=== PATIENT | male | born 1950 | race Caucasian/White ===

== ENCOUNTER 2019-01-06 10:23 | Inpatient (IN) | payer OTHER, MEDICARE ==
[2019-01-06 11:17] LABS: ABSOLUTE BASOPHILS # (AUTO) 0.1 10^3/uL (0.0-0.2); ABSOLUTE EOSINOPHILS # (AUTO) 0.3 10^3/uL (0.0-0.6); ABSOLUTE LYMPHOCYTES (AUTO) 2.4 10^3/uL (0.5-4.7); ABSOLUTE MONOCYTES (AUTO) 0.6 10^3/uL (0.1-1.4); ABSOLUTE NEUT (AUTO) 3.2 10^3/uL (1.7-8.2); BASOPHILS % (AUTO) 1.3 % (0-2); HEMOGLOBIN 15.8 g/dL (13.5-17.0); LYMPHOCYTES % (AUTO) 36.7 % (13-45); MEAN CORPUSCULAR HEMOGLOBIN 34.7 pg (27.0-33.4); MEAN CORPUSCULAR HGB CONC 35.9 g/dL (32.0-36.0); MEAN CORPUSCULAR VOLUME 97 fl (80-97); MONOCYTES % (AUTO) 9.1 % (3-13); PLATELET COUNT 238 10^3/uL (150-450); RED BLOOD COUNT 4.56 10^6/uL (4.35-5.55); RED CELL DISTRIBUTION WIDTH 12.8 % (11.5-14.0); SEGMENTED NEUTROPHILS % (AUTO) 48.9 % (42-78); TOTAL CELLS COUNTED % (AUTO) 100 %; WHITE BLOOD COUNT 6.6 10^3/uL (4.0-10.5)
[2019-01-06 11:27] LABS: INTERNATIONAL RATION (INR) 0.95; PROTHROMBIN TIME 13.1 SEC (11.4-15.4)
[2019-01-06 11:39] LABS: ALANINE AMINOTRANSFERASE 47 U/L (21-72); ALBUMIN 4.4 g/dL (3.5-5.0); ALKALINE PHOSPHATASE 75 U/L (38-126); ANION GAP 12 (5-19); ASPARTATE AMINO TRANSFERASE 65 U/L (17-59); BILIRUBIN,DIRECT 0.3 mg/dL (0.0-0.4); BILIRUBIN,TOTAL 0.7 mg/dL (0.2-1.3); BLOOD UREA NITROGEN 16 mg/dL (7-20); CALCIUM 9.5 mg/dL (8.4-10.2); CARBON DIOXIDE 31 mmol/L (22-30); CHLORIDE 96 mmol/L (98-107); GLUCOSE 218 mg/dL (75-110); POTASSIUM 3.9 mmol/L (3.6-5.0); SODIUM 139.3 mmol/L (137-145); TOTAL PROTEIN 6.9 g/dL (6.3-8.2)
--- NOTE | 2019-01-06 12:33 | ER Document Report ---
Addendum entered and electronically signed by BUNNY STONE FNP 01/06/19 16:29: Discharge - Discharge Clinical Impression: Fall Qualifiers: Encounter type: initial encounter Qualified Code(s): W19.XXXA - Unspecified fall, initial encounter Stroke Qualifiers: CVA mechanism: occlusion Precerebral and cerebral artery: middle cerebral artery Laterality of affected vessel: right Qualified Code(s): I63.511 - Cerebral infarction due to unspecified occlusion or stenosis of right middle cerebral artery Condition: Stable Disposition: ADMITTED INPATIENT Admitting Provider: Hospitalist Unit Admitted: [facility] Original Note: ED General - General Chief Complaint: Altered Mental Status Stated Complaint: DIZZINESS Time Seen by Provider: 01/06/19 11:06 Notes: Patient is a 68-year-old male who presents to the emergency department with a chief complaint of altered mental status. 4 days ago he fell and hit his head. According to his who is at bedside, he hit his head and has been disoriented since. His is at bedside to help with history. Patient denies any weakness, numbness, or tingling. He did go to work these past few days, except for today. They deny any fever, chest pain, or shortness of breath. He does complain of right hip pain from the fall, but is able to walk. The pain in a sore pain Past medical history includes insulin-dependent diabetes, hypertension, and hyperlipidemia.. TRAVEL OUTSIDE OF THE [place] IN LAST 30 DAYS: No - Related Data Allergies/Adverse Reactions: No Known Allergies Allergy (Verified 01/06/19 10:28) Past Medical History - Social History Smoking Status: Unknown if Ever Smoked Family History: Reviewed & Not Pertinent Patient has suicidal ideation: No Patient has homicidal ideation: No Renal/ Medical History: Denies: Hx Peritoneal Dialysis Review of Systems - Review of Systems Notes: REVIEW OF SYSTEMS: CONSTITUTIONAL : Denies recent illness. Denies recent unintentional weight loss. Denies fever, chills, or sweats. EENT: Denies eye, ear, throat, or mouth pain, discharge, or symptoms. Denies nasal or sinus congestion. CARDIOVASCULAR: Denies chest pain. RESPIRATORY: Denies shortness of breath, cough, congestion, difficulty breathing, or wheezing. GASTROINTESTINAL: Denies nausea, vomiting, and diarrhea. Denies abdominal pain. Denies constipation. GENITOURINARY: Denies difficulty urinating, burning, blood in urine, urgency or frequency. MUSCULOSKELETAL: Denies neck and back pain. Denies joint pain or swelling. SKIN: Denies rash, itchiness, or lesions HEMATOLOGIC : Denies easy bruising or bleeding. LYMPHATIC: Denies swollen, painful, enlarged glands. NEUROLOGICAL: See HPI PSYCHIATRIC: Denies stress, anxiety, alteration in sleep patterns, or depression. All other systems reviewed and negative. Physical Exam - Vital signs Vitals: Temp Pulse Resp BP Pulse Ox 97.9 F 64 16 141/61 H 97 01/06/19 10:32 01/06/19 10:32 01/06/19 10:32 01/06/19 10:32 01/06/19 10:32 - Notes Notes: PHYSICAL EXAMINATION: GENERAL: Appears well, healthy, well-nourished, no acute distress. HEAD: Normocephalic, atraumatic. EYES: PERRL, conjunctiva normal, all extraocular movements intact, sclera nonicteric ENT: Moist mucous membranes. NECK: Supple, no noticeable swelling, redness, rash. Normal range of motion. LUNGS: Equal breath sounds bilaterally and clear to auscultation. No wheezes rales or rhonchi. CARDIOVASCULAR: S1-S2, regular rate, regular rhythm. Radial pulses 2+, normal. ABDOMEN: Normoactive bowel sounds. Soft, nontender, no guarding, no rebound tenderness, and no masses palpated. EXTREMITIES: Normal strength and range of motion, no pitting or edema. No cyanosis. NEUROLOGICAL: Moves all extremities upon command. Strength 5/5 in all extremities. PSYCH: Normal mood, normal affect. SKIN: Warm, dry. Abrasion noted to right forearm. Very small abrasion noted to left lateral portion of eye on skin. Abrasion noted to right eyebrow. Course - Re-evaluation Re-evalutation: 01/06/19 13:37 Based off patient's history and physical exam, it is uncertain as to what the cause of his confusion is. He will have a full workup and a CT of the head, chest x-ray, and labs will be done and sent. 01/06/19 15:16 The patient's x-ray is normal and his labs are unremarkable. The patient does have a right MCA infarct that is unknown of how long it has been. He has not had a carotid Doppler or echocardiogram done in the past. I will contact the ospitalist in regards to this case. 01/06/19 15:[address] Back and the patient will be admitted to [facility]. - Vital Signs Vital signs: Temp Pulse Resp BP Pulse Ox 97.9 F 64 17 147/67 H 94 01/06/19 10:32 01/06/19 10:32 01/06/19 15:01 01/06/19 15:01 01/06/19 14:00 - Laboratory Result Diagrams: 01/06/19 11:05 01/06/19 11:05 Laboratory results interpreted by me: 01/06/19 01/06/19 01/06/19 11:05 11:05 11:05 MCH 34.7 H Chloride 96 L Carbon Dioxide 31 H Glucose 218 H AST 65 H Ammonia < 8.7 L Creatine Kinase Urine Glucose (UA) Urine Ketones 01/06/19 01/06/19 11:05 12:36 MCH Chloride Carbon Dioxide Glucose AST Ammonia Creatine Kinase 41 L Urine Glucose (UA) 150 H Urine Ketones TRACE H - EKG Interpretation by Me Additional EKG results interpreted by me: 01/06/19 16:01 Sinus rhythm. Rate 67. TX 140; QRS 130; QT 424; QTC 448. Right bundle branch block noted. Discharge - Discharge Clinical Impression: Fall Qualifiers: Encounter type: initial encounter Qualified Code(s): W19.XXXA - Unspecified fall, initial encounter Stroke Qualifiers: CVA mechanism: occlusion Precerebral and cerebral artery: middle cerebral artery Laterality of affected vessel: right Qualified Code(s): I63.511 - Cerebral infarction due to unspecified occlusion or stenosis of right middle cerebral artery Condition: Stable Unit Admitted: [facility]
[2019-01-06 13:04] LABS: APPEARANCE,URINE CLEAR; BILIRUBIN,URINE NEGATIVE (NEGATIVE); COLOR,URINE YELLOW; GLUCOSE, URINE 150 mg/dL (NEGATIVE); KETONES,URINE TRACE mg/dL (NEGATIVE); LEUKOCYTE ESTERASE,URINE NEGATIVE (NEGATIVE); NITRITE,URINE NEGATIVE (NEGATIVE); PROTEIN,URINE NEGATIVE (NEGATIVE); URINE SPECIFIC GRAVITY 1.017; UROBILINOGEN,URINE NEGATIVE mg/dL (<2.0)
--- NOTE | 2019-01-06 13:27 | RADIOLOGY REPORT (SQ) ---
EXAM DESCRIPTION: CT HEAD WITHOUT COMPLETED DATE/TIME: 01/06/2019 1:09 pm REASON FOR STUDY: AMS COMPARISON: None. TECHNIQUE: Axial images acquired through the brain without intravenous contrast. Images reviewed wi th bone, brain and subdural windows. Additional sagittal and coronal reconstructions were generated. Images stored on PACS. All CT scanners at this facility use dose modulation, iterative reconstruction, and/or weight based d osing when appropriate to reduce radiation dose to as low as reasonably achievable (ALARA). [facility]: Dose Right [facility]: CareDose [facility]: Dose Right [facility]: Teradose 4D [facility]: Smart Agilence RADIATION DOSE: CT Rad equipment meets quality standard of care and radiation dose reduction techniq ues were employed. CTDIvol: 53.2 mGy. DLP: 991 mGy-cm. mGy. LIMITATIONS: None. FINDINGS: VENTRICLES: Prominent. CEREBRUM: No hemorrhage. Geographic low attenuation right temporal lobe without significant mass eff ect measuring about 3 cm. Similar more subtle area of low attenuation in the right frontal lobe. CEREBELLUM: No masses. No hemorrhage. No alteration of density. No evidence for acute infarction. EXTRAAXIAL SPACES: Mild age-related involutional change. No fluid collections. No masses. ORBITS AND GLOBE: No intra- or extraconal masses. Normal contour of globe without masses. CALVARIUM: No fracture. PARANASAL SINUSES: No fluid or mucosal thickening. SOFT TISSUES: No mass or hematoma. OTHER: No other significant finding. IMPRESSION: Right MCA territory infarcts frontal lobe and temporal lobe of uncertain chronicity. No hemorrhage or mass effect. EVIDENCE OF ACUTE STROKE: Indeterminate. Cannot exclude subacute right MCA territory stroke. TECHNICAL DOCUMENTATION: JOB ID: [id number] Quality ID # [id number]: Final reports with documentation of one or more dose reduction techniques (e.g., Au tomated exposure control, adjustment of the mA and/or kV according to patient size, use of iterative reconstruction technique) 2010 [employer]- All Rights Reserved Reading location - IP/workstation name: [email or web address]
--- NOTE | 2019-01-06 14:17 | RADIOLOGY REPORT (SQ) ---
EXAM DESCRIPTION: CHEST SINGLE VIEW COMPLETED DATE/TIME: 01/06/2019 1:26 pm REASON FOR STUDY: AMS COMPARISON: None. EXAM PARAMETERS: NUMBER OF VIEWS: One view. TECHNIQUE: Single frontal radiographic view of the chest acquired. RADIATION DOSE: NA LIMITATIONS: None. FINDINGS: LUNGS AND PLEURA: No opacities, masses or pneumothorax. No pleural effusion. MEDIASTINUM AND HILAR STRUCTURES: No masses. Contour normal. HEART AND VASCULAR STRUCTURES: Heart normal in size. Normal vasculature. BONES: No acute findings. HARDWARE: None in the chest. OTHER: No other significant finding. IMPRESSION: No acute abnormality of the lungs in AP projection. TECHNICAL DOCUMENTATION: JOB ID: [id number] [employer]- All Rights Reserved Reading location - IP/workstation name: [email or web address]
--- NOTE | 2019-01-06 14:19 | RADIOLOGY REPORT (SQ) ---
EXAM DESCRIPTION: HIP LEFT AP/LATERAL COMPLETED DATE/TIME: 01/06/2019 1:26 pm REASON FOR STUDY: fall COMPARISON: None. NUMBER OF VIEWS: Two views. TECHNIQUE: AP pelvis and additional frog-leg view of the left hip. LIMITATIONS: None. FINDINGS: MINERALIZATION: Normal. LEFT HIP: No fracture or dislocation. No worrisome bone lesions. RIGHT HIP: No fracture or dislocation. No worrisome bone lesions. PUBIS AND ISCHIUM: No fracture. PELVIS: No fracture. SACRUM: No fracture or dislocation. No worrisome bone lesions. LOWER LUMBAR SPINE: No fracture or dislocation. No worrisome bone lesions. No significant disc disea se. SOFT TISSUES: No findings. OTHER: No other significant finding. IMPRESSION: NEGATIVE STUDY OF THE LEFT HIP AND PELVIS. NO RADIOGRAPHIC EVIDENCE OF ACUTE INJURY. TECHNICAL DOCUMENTATION: JOB ID: [id number] [employer]- All Rights Reserved Reading location - IP/workstation name: [email or web address]
[2019-01-06 15:51] LABS: CREATINE KINASE MB 0.77 ng/mL (<4.55)
[2019-01-06 15:52] LABS: TROPONIN I < 0.012 ng/mL
[2019-01-06] MEDS ORDERED: MAGNESIUM HYDROXIDE SUSP 30 ML UDCUP PO PRN (17:54)
[2019-01-06] MEDS ORDERED: ACETAMINOPHEN 325 MG TABLET PO PRN (17:54)
[2019-01-06] MEDS ORDERED: ONDANSETRON HCL INJ/PF 4 MG/2 ML SDV IV PRN (17:54)
[2019-01-06] MEDS ORDERED: DOCUSATE SODIUM 100 MG CAPSULE PO PRN (17:54)
--- NOTE | 2019-01-06 17:57 | EKG REPORT ---
SEVERITY:- ABNORMAL ECG - SINUS RHYTHM IVCD, CONSIDER ATYPICAL RBBB : Confirmed by: Lennox Rodríguez MD 06-Jan-2019 17:56:26
[2019-01-06] MEDS: ASPIRIN 81 MG TABLET, CHEWABLE PO SCH (21:33)
[2019-01-06] MEDS: HEPARIN SOD (PORCINE) 5,000 UNIT/ML 1 ML SYRINGE SUBCUT SCH (21:33)
[2019-01-06] MEDS: INSULIN GLARGINE,HUM.REC.ANLOG 1,000 UNIT/10 ML UNIT SUBCUT SCH (21:34)
[2019-01-06] MEDS ORDERED: ATORVASTATIN CALCIUM 20 MG TABLET PO SCH (22:00)
[2019-01-06] MEDS: HYDRALAZINE HCL INJ/PF 20 MG/1 ML SDV IV SCH (23:51)
[2019-01-07 05:21] LABS: ANION GAP 10 (5-19); BLOOD UREA NITROGEN 18 mg/dL (7-20); CALCIUM 9.3 mg/dL (8.4-10.2); CARBON DIOXIDE 32 mmol/L (22-30); CHLORIDE 98 mmol/L (98-107); GLUCOSE 174 mg/dL (75-110); POTASSIUM 3.6 mmol/L (3.6-5.0); SODIUM 139.5 mmol/L (137-145)
[2019-01-07] MEDS: HYDRALAZINE HCL INJ/PF 20 MG/1 ML SDV IV SCH ×3 (05:37→17:24)
[2019-01-07] MEDS: HEPARIN SOD (PORCINE) 5,000 UNIT/ML 1 ML SYRINGE SUBCUT SCH ×3 (05:40→22:01)
[2019-01-07] MEDS: LANSOPRAZOLE 15 MG TAB.RAP.DR PO SCH ×2 (05:40→17:22)
[2019-01-07] MEDS ORDERED: DEXTROSE 50%-WATER 25 GM/50 ML DISP.SYRIN IV PRN ×4 (08:10→11:36)
[2019-01-07] MEDS ORDERED: GLUCAGON,HUMAN RECOMB 1 MG INJ IM PRN ×2 (08:10→11:36)
[2019-01-07] MEDS ORDERED: DEXTROSE 40% GEL 15 GM TUBE PO PRN ×4 (08:10→11:36)
[2019-01-07] MEDS ORDERED: ONDANSETRON HCL INJ/PF 4 MG/2 ML SDV IV PRN (08:30)
[2019-01-07] MEDS: INSULIN GLARGINE,HUM.REC.ANLOG 1,000 UNIT/10 ML UNIT SUBCUT SCH ×2 (09:46→22:05)
[2019-01-07] MEDS: CHOLECALCIFEROL (D3) 1,000 UNIT TABLET PO SCH (09:46)
[2019-01-07] MEDS: GEMFIBROZIL 600 MG TABLET PO SCH (09:46)
[2019-01-07] MEDS: HYDROCHLOROTHIAZIDE 25 MG TABLET PO SCH (09:46)
[2019-01-07] MEDS ORDERED: INSULIN GLARGINE,HUM.REC.ANLOG 300 UNIT/3 ML INSULN.PEN SUBCUT SCH (10:00)
[2019-01-07] MEDS ORDERED: METFORMIN HCL 500 MG TABLET PO SCH (10:00)
[2019-01-07] MEDS ORDERED: LOSARTAN POTASSIUM 50 MG TABLET PO SCH (10:00)
[2019-01-07] MEDS: INSULIN LISPRO 100 UNIT/ML 3 ML VIAL SUBCUT SCH ×4 (12:05→22:06)
[2019-01-07] MEDS ORDERED: LOSARTAN POTASSIUM 25 MG TABLET PO ONE ×2 (12:30→14:00)
--- NOTE | 2019-01-07 14:17 | PDOC H&P ---
History of Present Illness Admission Date/PCP: 01/06/19 16:45 Patient complains of: Fall with clouded thinking History of Present Illness: VIVIANE BARBER is a 68 year old male with history of hypertension, diabetes and hyperlipidemia. The patient had a "full "on Thursday. He cannot remember the fall. He states he was fuzzy that morning. He fell after supper. His found him on the floor. He was slightly confused and did not know where he was. He thought he was in bed. On Thursday he still had balance issues. His felt that he was more soft spoken than usual and had some difficulties gathering his thoughts. She also noticed prior to Thursday that his right eyelid would sometimes droop. He seems somewhat more anxious. He appears more sensitive to alcohol. He had decreased energy and was more forgetful sometimes finding difficulty with his thoughts. An example also was that he left the burner on the stove on. He presented to the emergency room. CT scan of the head showed low at attenuation areas in the right middle cerebral artery distribution. Age was indeterminate. Past Medical History Cardiac Medical History: Reports: Hyperlipidema, Hypertension Pulmonary Medical History: Denies: Chronic Obstructive Pulmonary Disease (COPD), Respiratory Failure EENT Medical History: Reports: Cataracts Neurological Medical History: Denies: Ischemic CVA Endocrine Medical History: Reports: Diabetes Mellitus Type 2 Renal/ Medical History: Denies: Chronic Kidney Disease Malignancy Medical History: Denies: None GI Medical History: Denies: None, Gastroesophageal Reflux Disease, Hepatitis Musculoskeltal Medical History: Denies: None, Fibromyalgia, Gout Skin Medical History: Denies: Eczema, Psoriasis Psychiatric Medical History: Reports: Alcohol Dependency Traumatic Medical History: Reports: None Hematology: Denies: Anemia, Bleeding Tendencies Infectious Medical History: Reports: None Past Surgical History Past Surgical History: Reports: Other - Cataracts Social History Information Source: Patient, Relative Lives with: Family Smoking Status: Former Smoker Frequency of Alcohol Use: Heavy Amount of Alcoholic Beverages Per Day: 5 whiskeys Hx Recreational Drug Use: No Hx Prescription Drug Abuse: No - Advance Directive Resuscitation Status: Full Code Surrogate healthcare decision maker:: No healthcare proxy document but is the designated decision maker. Family History Family History: Reviewed & Not Pertinent Parental Family History Reviewed: Yes Children Family History Reviewed: NA Sibling(s) Family History Reviewed.: Yes Medication/Allergy Home Medications: Cholecalciferol (Vitamin D3) [Vitamin D3 1000 Unit Tablet] 1,000 unit PO DAILY 01/06/19 Garlic [Garlic Oil] 500 mg PO BID 01/06/19 Gemfibrozil [Lopid 600 mg Tablet] 1,200 mg PO DAILY 01/06/19 Hydrochlorothiazide [Hydrodiuril 25 mg Tablet] 25 mg PO DAILY 01/06/19 Insulin Glargine,Hum.rec.anlog [Lantus Insulin 100 Unit/mL] 35 units SQ BID 01/06/19 Metformin HCl [Glucophage 500 mg Tablet] 1,000 mg PO BID 01/06/19 [place]-3 Fatty Acids/Fish Oil [Fish Oil 1,000 mg Capsule] 1 cap PO BID 01/06/19 Omeprazole 20 mg PO DAILY 01/06/19 Aspirin [Ecotrin 81 mg EC Tablet] 81 mg PO DAILY 01/07/19 Losartan Potassium [Cozaar 100 mg Tablet] 50 mg PO DAILY 01/07/19 Metoprolol Succinate [Toprol Xl 50 mg Tab.sr] 25 mg PO DAILY 01/07/19 Allergies/Adverse Reactions: No Known Allergies Allergy (Verified 01/06/19 10:28) Review of Systems Constitutional: PRESENT: as per HPI Eyes: ABSENT: visual disturbances Ears: PRESENT: hearing changes - Has hearing aids but does not wear them Nose, Mouth, and Throat: ABSENT: mouth pain, sore throat Cardiovascular: ABSENT: chest pain, edema, palpitations Respiratory: ABSENT: cough, dyspnea Gastrointestinal: PRESENT: constipation. ABSENT: abdominal pain, nausea, v omiting Genitourinary: ABSENT: dysuria, hematuria Musculoskeletal: ABSENT: deformity, joint swelling Integumentary: ABSENT: lesions Neurological: ABSENT: abnormal speech, confusion, focal weakness, memory loss, tremor(s) Psychiatric: ABSENT: anxiety, depression Endocrine: ABSENT: cold intolerance, heat intolerance Hematologic/Lymphatic: ABSENT: easy bleeding, easy bruising Physical Exam Vital Signs: Temp Pulse Resp BP Pulse Ox 97.9 F 67 12 113/98 H 93 01/06/19 10:32 01/06/19 16:07 01/06/19 17:01 01/06/19 17:01 01/06/19 17:01 Intake & Output 01/05/19 01/06/19 01/07/19 06:59 06:59 06:59 Weight 99.7 kg General appearance: PRESENT: no acute distress, cooperative, well-developed Head exam: PRESENT: normocephalic Eye exam: PRESENT: conjunctiva pink, EOMI. ABSENT: scleral icterus Ear exam: PRESENT: normal external ear exam Mouth exam: PRESENT: moist, tongue midline Neck exam: ABSENT: carotid bruit, JVD, lymphadenopathy Respiratory exam: PRESENT: clear to auscultation [place] Cardiovascular exam: PRESENT: RRR, +S1, +S2, systolic murmur - 2/6 Pulses: PRESENT: normal dorsalis pedis pul GI/Abdominal exam: PRESENT: normal bowel sounds, soft. ABSENT: distended, tende rness Rectal exam: PRESENT: deferred Gentrourinary exam: ABSENT: lesions, indwelling catheter Extremities exam: ABSENT: pedal edema Musculoskeletal exam: PRESENT: normal inspection, other - Normal strength Neurological exam: PRESENT: alert, awake, oriented to person, oriented to place, oriented to situation Psychiatric exam: PRESENT: appropriate affect, normal mood. ABSENT: agitated, anxious Focused psych exam: ABSENT: delusional, restlessness Results Laboratory Results: 01/06/19 11:05 01/06/19 11:05 01/06/19 01/06/19 01/06/19 11:05 11:05 11:05 WBC 6.6 RBC 4.56 Hgb 15.8 Hct 44.0 MCV 97 MCH 34.7 H MCHC 35.9 RDW 12.8 Plt Count 238 Seg Neutrophils % 48.9 Lymphocytes % 36.7 Monocytes % 9.1 Eosinophils % 4.0 Basophils % 1.3 Absolute Neutrophils 3.2 Absolute Lymphocytes 2.4 Absolute Monocytes 0.6 Absolute Eosinophils 0.3 Absolute Basophils 0.1 Sodium 139.3 Potassium 3.9 Chloride 96 L Carbon Dioxide 31 H Anion Gap 12 BUN 16 Creatinine 0.77 Est GFR ( Amer) > 60 Est GFR (Non-Af Amer) > 60 Glucose 218 H Calcium 9.5 Total Bilirubin 0.7 AST 65 H ALT 47 Alkaline Phosphatase 75 Ammonia < 8.7 L Total Protein 6.9 Albumin 4.4 Urine Color Urine Appearance Urine pH Ur Specific [place] Urine Protein Urine Glucose (UA) Urine Ketones Urine Blood Urine Nitrite Ur Leukocyte Esterase 01/06/19 12:36 WBC RBC Hgb Hct MCV MCH MCHC RDW Plt Count Seg Neutrophils % Lymphocytes % Monocytes % Eosinophils % Basophils % Absolute Neutrophils Absolute Lymphocytes Absolute Monocytes Absolute Eosinophils Absolute Basophils Sodium Potassium Chloride Carbon Dioxide Anion Gap BUN Creatinine Est GFR ( Amer) Est GFR (Non-Af Amer) Glucose Calcium Total Bilirubin AST ALT Alkaline Phosphatase Ammonia Total Protein Albumin Urine Color YELLOW Urine Appearance CLEAR Urine pH 6.0 Ur Specific [place] 1.017 Urine Protein NEGATIVE Urine Glucose (UA) 150 H Urine Ketones TRACE H Urine Blood NEGATIVE Urine Nitrite NEGATIVE Ur Leukocyte Esterase NEGATIVE 01/06/19 01/06/19 11:05 11:05 Creatine Kinase 41 L CK-MB (CK-2) 0.77 Troponin I < 0.012 Impressions: Head CT 01/06/19 12:20 IMPRESSION: Right MCA territory infarcts frontal lobe and temporal lobe of uncertain chronicity. No hemorrhage or mass effect. EVIDENCE OF ACUTE STROKE: Indeterminate. Cannot exclude subacute right MCA territory stroke. Chest X-Ray 01/06/19 12:31 IMPRESSION: No acute abnormality of the lungs in AP projection. Hip X-Ray 01/06/19 12:32 IMPRESSION: NEGATIVE STUDY OF THE LEFT HIP AND PELVIS. NO RADIOGRAPHIC EVIDENCE OF ACUTE INJURY. Assessment & Plan - Diagnosis (1) Acute ischemic stroke Is this a current diagnosis for this admission?: Yes Plan: The clinical scenario suggests stroke. No focused acute findings on this encounter. CT scan reveals hypodense lesions age-indeterminate. The patient has high risk with his hypertension, hyperlipidemia and diabetes. He is a former smoker. Aspirin therapy will be initiated. We will strive for good blood pressure control. With his history of a fall will have speech therapy evaluate. (2) Diabetes mellitus type 2, insulin dependent Is this a current diagnosis for this admission?: Yes Plan: We will check hemoglobin A1c. We will continue metformin and the insulin. His diabetes likely contributes to the cerebrovascular disease. Diabetic and ca rdiac diet. Will also be on a Humalog sliding scale with Accu-Cheks q. before meals and at bedtime. (3) Hypertension Qualifiers: Hypertension type: essential hypertension Qualified Code(s): I10 - Essential (primary) hypertension Is this a current diagnosis for this admission?: Yes Plan: Continue angiotensin receptor korina. Monitor for good blood pressure control. Adjust medications as indicated. (4) Hyperlipidemia Qualifiers: Hyperlipidemia type: mixed hyperlipidemia Qualified Code(s): E78.2 - Mixed hyperlipidemia Is this a current diagnosis for this admission?: Yes Plan: Continue statin therapy. (5) Alcohol dependence Qualifiers: Substance use status: unspecified alcohol-induced disorder Qualified Code(s): F10.29 - Alcohol dependence with unspecified alcohol-induced disorder Is this a current diagnosis for this admission?: Yes Plan: The patient drinks 4-5 whiskeys a day. It might be more. It is difficult to know if this contributed to his fall on Thursday. We will need to be mindful of possible DTs. - Time Time Spent: 50 to 70 Minutes Medications reviewed and adjusted accordingly: Yes Anticipated discharge: Home - Inpatient Certification Based on my medical assessment, after consideration of the patient's comorbidities, presenting symptoms, or acuity I expect that the services needed warrant INPATIENT care.: Yes I certify that my determination is in accordance with my understanding of Medicare's requirements for reasonable and necessary INPATIENT services [42 CFR 412.3e].: Yes Medical Necessity: Need Close Monitoring Due to Risk of Patient Decompensation, Need for Neurological Checks Post Hospital Care: D/C Respiratory Assistant Documentation
[2019-01-07] MEDS: METOPROLOL SUCCINATE 25 MG TAB.SR.24H PO SCH (14:58)
--- NOTE | 2019-01-07 15:38 | PDOC PROGRESS REPORT ---
Subjective Progress Note for:: 01/07/19 Subjective:: VIVIANE BARBER is a 68 year old male with history of hypertension, diabetes and hyperlipidemia. The patient had a "fall "on Thursday. He cannot remember the fall. He states he was fuzzy that morning. He fell after supper. His found him on the floor. He was slightly confused and did not know where he was. He thought he was in bed. On Thursday he still had balance issues. His felt that he was more soft spoken than usual and had some difficulties gathering his thoughts. She also noticed prior to Thursday that his right eyelid would sometimes droop. He seems somewhat more anxious. He appears more sensitive to alcohol. He had decreased energy and was more forgetful sometimes finding difficulty with his thoughts. An example also was that he left the burner on the stove on. He presented to the emergency room. CT scan of the head showed low at attenuation areas in the right middle cerebral artery distribution. Age was indeterminate. 01/07/2019. No acute events overnight. Patient denies any focal neurological deficits. Was able to participate in physical therapy. Recommendation was no physical therapy needed and discharged home. Patient is ambulatory, p.o. tolerant, having normal bowel and bladder function. Denies any fever, chills, nausea, vomiting, diarrhea, constipation or any urinary symptoms. 01/06/2019. CT head. Right MCA territory infarct frontal lobe and temporal lobe of uncertain chronicity. Cannot exclude subacute right MCA territory stroke. 01/07/2019. MRI brain. Acute diffusion restriction infarction of the mid right frontal lobe and right temporoparietal junction. Segmental occlusion of the distal right internal carotid artery which is reconstituted at the target as by retrograde flow. Which could be a possible source of embolic infarction to the right MCA territory. 01/05/2019. Carotid Doppler. Occluded right ICA at the carotid bifurcation. 01/06/2019. ECG sinus rhythm. IVCD atypical right atypical RBBB. Systolic blood pressure. 130s-150s 01/07/2019. Physical therapy report is able to walk 300 feet independently. No further PT required. Reason For Visit: ACUTE ISCHEMIC STROKE Physical Exam Vital Signs: Temp Pulse Resp BP Pulse Ox 98.1 F 61 18 145/82 H 97 01/07/19 11:25 01/07/19 14:00 01/07/19 12:00 01/07/19 12:00 01/07/19 12:00 Intake & Output 01/06/19 01/07/19 01/08/19 06:59 06:59 06:59 Intake Total 390 500 Output Total 350 Balance 40 500 Weight 97.1 kg Results Laboratory Results: 01/06/19 11:05 01/07/19 04:13 01/07/19 04:13 Sodium 139.5 Potassium 3.6 Chloride 98 Carbon Dioxide 32 H Anion Gap 10 BUN 18 Creatinine 0.88 Est GFR ( Amer) > 60 Est GFR (Non-Af Amer) > 60 Glucose 174 H Calcium 9.3 Magnesium 1.6 01/06/19 01/06/19 11:05 11:05 Creatine Kinase 41 L CK-MB (CK-2) 0.77 Troponin I < 0.012 Impressions: Head CT 01/06/19 12:20 IMPRESSION: Right MCA territory infarcts frontal lobe and temporal lobe of uncertain chronicity. No hemorrhage or mass effect. EVIDENCE OF ACUTE STROKE: Indeterminate. Cannot exclude subacute right MCA territory stroke. Chest X-Ray 01/06/19 12:31 IMPRESSION: No acute abnormality of the lungs in AP projection. Hip X-Ray 01/06/19 12:32 IMPRESSION: NEGATIVE STUDY OF THE LEFT HIP AND PELVIS. NO RADIOGRAPHIC EVIDENCE OF ACUTE INJURY. Assessment & Plan - Diagnosis (1) Acute right arterial ischemic stroke, MCA (middle cerebral artery) Is this a current diagnosis for this admission?: Yes Plan: Continue high intensity statins, aspirin and Lovenox. Optimize blood pressure and blood glucose level. 01/07/2019. No acute events overnight. Patient denies any focal neurological deficits. Was able to participate in physical therapy. Recommendation was no physical therapy needed and discharged home. Patient is ambulatory, p.o. tolerant, having normal bowel and bladder function. Denies any fever, chills, nausea, vomiting, diarrhea, constipation or any urinary symptoms. 01/06/2019. CT head. Right MCA territory infarct frontal lobe and temporal lobe of uncertain chronicity. Cannot exclude subacute right MCA territory stroke. 01/07/2019. MRI brain. Acute diffusion restriction infarction of the mid right frontal lobe and right temporoparietal junction. Segmental occlusion of the distal right internal carotid artery which is reconstituted at the target as by retrograde flow. Which could be a possible source of embolic infarction to the right MCA territory. 01/05/2019. Carotid Doppler. Occluded right ICA at the carotid bifurcation. 01/06/2019. ECG sinus rhythm. IVCD atypical right atypical RBBB. Systolic blood pressure. 130s-150s 01/07/2019. Physical therapy report is able to walk 300 feet independently. No further PT required. (2) Hypertension Qualifiers: Hypertension type: essential hypertension Qualified Code(s): I10 - Essential (primary) hypertension Is this a current diagnosis for this admission?: Yes Plan: Systolic blood pressure. 130s-150s. Current meds. Adjust meds as needed. (3) Hyperlipidemia Qualifiers: Hyperlipidemia type: mixed hyperlipidemia Qualified Code(s): E78.2 - Mixed hyperlipidemia Is this a current diagnosis for this admission?: Yes Plan: High intensity statins. Diet and lifestyle modification. (4) Diabetes mellitus type 2, insulin dependent Is this a current diagnosis for this admission?: Yes Plan: Diabetic diet, sliding scale insulin, long-acting insulin, pre-meal insulin, such as needed. Outpatient PCP follow-up.
--- NOTE | 2019-01-07 16:02 | RADIOLOGY REPORT (SQ) ---
EXAM DESCRIPTION: MRA HEAD WITHOUT; MRI HEAD WITHOUT COMPLETED DATE/TIME: 01/07/2019 3:47 pm REASON FOR STUDY: CVA COMPARISON: CT brain, 01/06/2019 TECHNIQUE: Multiplanar imaging includes non-contrasted T1, T2, FLAIR, and diffusion with ADC map seq uences. Images stored on PACS. LIMITATIONS: None. FINDINGS: ANATOMY: No anomalies. Normal vascular flow voids. Pituitary fossa normal. CSF SPACES: Normal in size and contour. No hemorrhage. CEREBRUM: Sulci and gyri normal in size and contour. Normal white matter signal on FLAIR imaging. No evidence of hemorrhage, mass, or extraaxial fluid collection. POSTERIOR FOSSA: No signal alteration. No hemorrhage. No edema, masses or mass effect. Internal nestor tory canals, cerebello-pontine angles, mastoids normal. DIFFUSION IMAGING: There are acute diffusion restricting infarctions of the mid right frontal lobe an d right temporoparietal junction, in keeping with findings of prior CT. ORBITS: No masses. Globes normal. PARANASAL SINUSES: No fluid levels. Mucosa normal. TOF MRA: There is long segment occlusion of the included distal right internal carotid artery, which is reconstituted at the terminus by retrograde flow. There is no stenosis or occlusion of the bilat eral anterior cerebral, middle cerebral, posterior cerebral, vertebral, or basilar arteries. There i s a very diminutive right vertebral artery. IMPRESSION: 1. Acute diffusion restricting infarctions of the mid right frontal lobe and right temp oroparietal junction, in keeping with findings of prior CT. 2. There is long segment occlusion of the included distal right internal carotid artery, which is rec onstituted at the terminus by retrograde flow; this is a possible source of embolic infarction to the right MCA territory. EVIDENCE OF ACUTE STROKE: NO. TECHNICAL DOCUMENTATION: JOB ID: [id number] [employer]- All Rights Reserved Reading location - IP/workstation name: [email or web address]
--- NOTE | 2019-01-07 16:11 | RADIOLOGY REPORT (SQ) ---
EXAM DESCRIPTION: CAROTID DOPPLER COMPLETED DATE/TIME: 01/07/2019 3:54 pm REASON FOR STUDY: CVA COMPARISON: CT brain 01/06/2019 TECHNIQUE: Grayscale ultrasound, Doppler velocity and spectra, and color Doppler images acquired of the extra-cranial carotid and vertebral arteries. Images stored on PACS. LIMITATIONS: None. FINDINGS: RIGHT CAROTID CCA Velocities: Within normal limits. Right common carotid artery peak systolic velocity 1 m/sec. ICA Velocities The right internal carotid artery is occluded at the right carotid bifurcation due to mixed calcific and noncalcific plaque. Wall thump artifact in the right proximal ICA is seen on Doppler exam. Normal velocities in the right external carotid artery. LEFT CAROTID CCA Velocities: Within normal limits. Left common carotid artery peak systolic velocity 1.5 m/sec ICA Velocities Peak systolic 1.9 m/s. End diastolic 0.7 m/s. Proximal ICA/CCA peak systolic ratio 1.6. Calcific and non calcific shadowing plaque at the left carotid bifurcation. Velocities in the left I CA immediately distal to the shadowing plaque suggest left proximal ICA 50 to 69% diameter narrowing. External carotid artery is patent with 50 to 69% stenosis by velocity criteria. VERTEBRAL ARTERIES: Antegrade flow. Normal waveforms. SUBCLAVIAN ARTERIES: No finding. OTHER: No other significant finding. IMPRESSION: Occluded right ICA at the carotid bifurcation COMMENT: Pertinent findings on the imaging study reported as a CRITICAL RESULT to ANA JIMENEZ MD at 14:44 on 01/07/2019. Category of Critical Result: Occluded right ICA Quality ID #[id number]: Velocity criteria are extrapolated from the diameter data as defined by the Society of Radiologists in Ultrasound Consensus Conference. Radiology 2003: 229; 340-346. TECHNICAL DOCUMENTATION: JOB ID: [id number] [employer]- All Rights Reserved Reading location - IP/workstation name: [email or web address]
[2019-01-07] MEDS ORDERED: ATORVASTATIN CALCIUM 20 MG TABLET PO SCH (22:00)
[2019-01-07] MEDS ORDERED: ATORVASTATIN CALCIUM 40 MG TABLET PO SCH (22:00)
[2019-01-07] MEDS: ASPIRIN 81 MG TABLET, CHEWABLE PO SCH (22:01)
[2019-01-08] MEDS: HYDRALAZINE HCL INJ/PF 20 MG/1 ML SDV IV SCH ×3 (00:32→11:43)
[2019-01-08] MEDS: LANSOPRAZOLE 15 MG TAB.RAP.DR PO SCH (05:06)
[2019-01-08] MEDS: HEPARIN SOD (PORCINE) 5,000 UNIT/ML 1 ML SYRINGE SUBCUT SCH (05:06)
[2019-01-08] MEDS: INSULIN LISPRO 100 UNIT/ML 3 ML VIAL SUBCUT SCH ×4 (08:04→11:38)
[2019-01-08] MEDS: GEMFIBROZIL 600 MG TABLET PO SCH (09:32)
[2019-01-08] MEDS: HYDROCHLOROTHIAZIDE 25 MG TABLET PO SCH (09:32)
[2019-01-08] MEDS: METOPROLOL SUCCINATE 25 MG TAB.SR.24H PO SCH (09:32)
[2019-01-08] MEDS: CHOLECALCIFEROL (D3) 1,000 UNIT TABLET PO SCH (09:32)
[2019-01-08] MEDS: INSULIN GLARGINE,HUM.REC.ANLOG 1,000 UNIT/10 ML UNIT SUBCUT SCH (09:33)
[2019-01-08] MEDS ORDERED: LOSARTAN POTASSIUM 50 MG TABLET PO SCH ×3 (10:00)
--- NOTE | 2019-01-08 11:54 | XCELERA REPORT ---
[address] [address] Transthoracic Echocardiogram Report Name: VIVIANE BARBER Age: 68 yrs Gender: Male : 1950 Patient Status: Inpatient Patient Location: [address] [place], [place] [id number] Study Date: 01/07/2019 01:47 PM Height: 71 in Weight: 214 lb BSA: 2.2 m2 Procedure: A two-dimensional transthoracic echocardiogram with color flow and Doppler was performed. Study Quality: Fair. Reason For Study: CVA History: CVA. Ordering Physician: ANA JIMENEZ Performed By: Arnoldo Delacruz Interpretation Summary There is no obvious cardiac source of embolus noted on this transthoracic echocardiogram. Follow-up with a MANUEL is suggested if cardiac source is still suspected. The left ventricle is normal in size. There is normal left ventricular wall thickness. LV EF is 65% The left ventricular ejection fraction is within normal limits. Doppler measurements suggest impaired left ventricular relaxation, which is associated with grade I/IV or mild diastolic dysfunction The left ventricular wall motion is normal. No obvious thrombus,but not a good study to assess for clots. The right ventricle is not well visualized secondary to technical limitations The right ventricle is grossly normal size. The right atrium is normal. The left atrial size is normal. There is no evidence of mitral valve prolapse. There is no vegetation seen on the mitral valve. There is no mitral valve stenosis. There is no aortic valvular vegetation. No tricuspid regurgitation. Unable to calculate RVSP due lack of TR jet. There is no pericardial effusion. There is no obvious cardiac source of embolus noted on this transthoracic echocardiogram. Follow-up with a MANUEL is suggested if cardiac source is still suspected MMode/2D Measurements & Calculations RVDd: 3.3 cm LVIDd: 4.9 cm FS: 36.3 % Ao root diam: 3.6 cm IVSd: 1.1 cm LVIDs: 3.1 cm EDV(Teich): 115.2 ml Ao root area: 10.4 cm2 LVPWd: 0.95 cm ESV(Teich): 39.4 ml LA dimension: 3.5 cm EF(Teich): 65.8 % Doppler Measurements & Calculations MV E max tarik: MV P1/2t max tarik: Ao V2 max: LV V1 max P.4 cm/sec 49.2 cm/sec 112.5 cm/sec 3.5 mmHg MV A max tarik: MV P1/2t: 119.0 msec Ao max PG: LV V1 max: 65.0 cm/sec MVA(P1/2t): 1.8 cm2 5.1 mmHg 93.3 cm/sec MV E/A: 0.73 MV dec slope: 121.1 cm/sec2 MV dec time: 0.36 sec PA V2 max: MV P1/2t-pr_phl: 85.4 cm/sec 119.0 msec PA max P.9 mmHg Left Ventricle The left ventricle is normal in size. There is normal left ventricular wall thickness. LV EF is 65%. The left ventricular ejection fraction is within normal limits. Doppler measurements suggest impaired left ventricular relaxation, which is associated with grade I/IV or mild diastolic dysfunction. The left ventricular wall motion is normal. No obvious thrombus,but not a good study to assess for clots. Right Ventricle The right ventricle is not well visualized secondary to technical limitations. The right ventricle is grossly normal size. Atria The right atrium is normal. The left atrial size is normal. Mitral Valve There is no evidence of mitral valve prolapse. There is no vegetation seen on the mitral valve. There is no mitral valve stenosis. There is no mitral regurgitation noted. Aortic Valve There is no aortic valvular vegetation. There is no aortic valve stenosis. No aortic regurgitation is present. Tricuspid Valve There is no tricuspid stenosis. No tricuspid regurgitation. Unable to calculate RVSP due lack of TR jet. Pulmonic Valve There is no pulmonic valvular stenosis. There is no pulmonic valvular regurgitation. Great Vessels The aortic root is normal size. Effusions There is no pericardial effusion. : ANA JIMENEZ > Britta Julian
[2019-01-08 13:44] VITALS: BP 130/63
--- NOTE | 2019-01-08 15:04 | PDOC DISCHARGE SUMMARY ---
General - Admit/Disc Date/PCP Admission Date/Primary Care Provider: 01/06/19 16:45 Discharge Date: 01/08/19 - Discharge Diagnosis (1) Acute right arterial ischemic stroke, MCA (middle cerebral artery) Is this a current diagnosis for this admission?: Yes (2) Hypertension Is this a current diagnosis for this admission?: Yes (3) Hyperlipidemia Is this a current diagnosis for this admission?: Yes (4) Diabetes mellitus type 2, insulin dependent Is this a current diagnosis for this admission?: Yes (5) Atherosclerosis of both carotid arteries Is this a current diagnosis for this admission?: Yes - Additional Information Resuscitation Status: Full Code Discharge Diet: As Tolerated Discharge Activity: Activity As Tolerated Prescriptions: Clopidogrel Bisulfate [Plavix 75 mg Tablet] 75 mg PO DAILY #30 tablet Insulin Lispro [Humalog Insulin (Lispro) 100 unit/mL] 5 unit SUBCUT AC 30 Days #3 unit Home Medications: Cholecalciferol (Vitamin D3) [Vitamin D3 1000 Unit Tablet] 1,000 unit PO DAILY 01/06/19 Garlic [Garlic Oil] 500 mg PO BID 01/06/19 Gemfibrozil [Lopid 600 mg Tablet] 1,200 mg PO DAILY 01/06/19 Hydrochlorothiazide [Hydrodiuril 25 mg Tablet] 25 mg PO DAILY 01/06/19 Insulin Glargine,Hum.rec.anlog [Lantus Insulin 100 Unit/mL] 35 units SQ BID 01/06/19 Metformin HCl [Glucophage 500 mg Tablet] 1,000 mg PO BID 01/06/19 Marion-3 Fatty Acids/Fish Oil [Fish Oil 1,000 mg Capsule] 1 cap PO BID 01/06/19 Omeprazole 20 mg PO DAILY 01/06/19 Aspirin [Ecotrin 81 mg EC Tablet] 81 mg PO DAILY 01/07/19 Losartan Potassium [Cozaar 100 mg Tablet] 50 mg PO DAILY 01/07/19 Metoprolol Succinate [Toprol Xl 50 mg Tab.sr] 25 mg PO DAILY 01/07/19 Clopidogrel Bisulfate [Plavix 75 mg Tablet] 75 mg PO DAILY #30 tablet 01/08/19 Insulin Lispro [Humalog Insulin (Lispro) 100 unit/mL] 5 unit SUBCUT AC 30 Days #3 unit 01/08/19 History of Present Illness History of Present Illness: VIVIANE BARBER is a 68 year old male with history of hypertension, diabetes and hyperlipidemia. The patient had a "fall "on Thursday. He cannot remember the fall. He states he was fuzzy that morning. He fell after supper. His found him on the floor. He was slightly confused and did not know where he was. He thought he was in bed. On Thursday he still had balance issues. His felt that he was more soft spoken than usual and had some difficulties gathering his thoughts. She also noticed prior to Thursday that his right eyelid would sometimes droop. He seems somewhat more anxious. He appears more sensitive to alcohol. He had decreased energy and was more forgetful sometimes finding difficulty with his thoughts. An example also was that he left the burner on the stove on. He presented to the emergency room. CT scan of the head showed low at attenuation areas in the right middle cerebral artery distribution. Age was indeterminate. 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 Was started on DAPT. Lovenox. Pressure and blood glucose level were optimized. 01/07/2019. No acute events overnight. Patient denies any focal neurological deficits. Was able to participate in physical therapy. Recommendation was no physical therapy needed and discharged home. Patient is ambulatory, p.o. tolerant, having normal bowel and bladder function. Denies any fever, chills, nausea, vomiting, diarrhea, constipation or any urinary symptoms. 01/06/2019. CT head. Right MCA territory infarct frontal lobe and temporal lobe of uncertain chronicity. Cannot exclude subacute right MCA territory stroke. 01/07/2019. MRI brain. Acute diffusion restriction infarction of the mid right frontal lobe and right temporoparietal junction. Segmental occlusion of the distal right internal carotid artery which is reconstituted at the target as by retrograde flow. Which could be a possible source of embolic infarction to the right MCA territory. 01/05/2019. Carotid Doppler. Occluded right ICA at the carotid bifurcation. 01/07/2019. Physical therapy report is able to walk 300 feet independently. No further PT required. 01/07/2019. 2D echo left ventricular ejection fraction 65%. No thrombus. Was extensively counseled about atherosclerotic disease of his carotid arteries and future risk of having recurrent strokes, he was asked to follow-up with his PCP to be heard to the neurovascular surgeon for possible intervention. Ultimately this could not be arranged through the hospital as patient has medical at the [facility]. (2) Hypertension He was continued on ARB and beta-blockers. Controlled. He is to follow-up with PCP for reevaluation and readjustment of his blood pressure meds. 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 Continued on gemfibrozil. Diet and lifestyle modification. (4) Diabetes mellitus type 2, insulin dependent Controlled. Started on diabetic diet, sliding scale insulin, long-acting insulin, pre-meal insulin, such as needed. Was asked to follow-up with PCP for reassessment of his insulin dosages. Asked to keep a log of his blood sugars and taken to PCP. (5) Atherosclerosis of both carotid arteries 01/07/19 Brain MRA long segment occlusion of the included distal right internal carotid artery, which is reconstituted at the terminus by retrograde flow; this is a possible source of embolic infarction to the right MCA territory. 01/05/2019. Carotid Doppler. Occluded right ICA at the carotid bifurcation. Was started on DAPT. 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 Continued on gemfibrozil. Was extensively counseled about atherosclerotic disease of his carotid arteries and future risk of having recurrent strokes, he was asked to follow-up with his PCP to be heard to the neurovascular surgeon for possible intervention. Ultimately this could not be arranged through the hospital as patient has medical at the [facility]. Physical Exam Vital Signs: Temp Pulse Resp BP Pulse Ox 97.9 F 57 L 16 130/63 H 95 01/08/19 13:40 01/08/19 13:40 01/08/19 13:40 01/08/19 13:40 01/08/19 13:40 Intake & Output 01/07/19 01/08/19 01/09/19 06:59 06:59 06:59 Intake Total 390 1300 Output Total 350 1375 Balance 40 -75 Weight 97.1 kg 95.6 kg General appearance: PRESENT: no acute distress, well-developed, well-nourished Head exam: PRESENT: atraumatic, normocephalic Eye exam: PRESENT: conjunctiva pink, EOMI, PERRLA. ABSENT: scleral icterus Ear exam: PRESENT: normal external ear exam Mouth exam: PRESENT: moist, tongue midline Neck exam: ABSENT: carotid bruit, JVD, lymphadenopathy, thyromegaly Respiratory exam: PRESENT: clear to auscultation chase. ABSENT: rales, rhonchi, wheezes Cardiovascular exam: PRESENT: RRR. ABSENT: diastolic murmur, rubs, systolic murmur Pulses: PRESENT: normal dorsalis pedis pul Vascular exam: PRESENT: normal capillary refill GI/Abdominal exam: PRESENT: normal bowel sounds, soft. ABSENT: distended, guarding, mass, organolmegaly, rebound, tenderness Rectal exam: PRESENT: deferred Extremities exam: PRESENT: full ROM. ABSENT: calf tenderness, clubbing, pedal edema Neurological exam: PRESENT: alert, awake, oriented to person, oriented to place, oriented to time, oriented to situation, CN II-XII grossly intact. ABSENT: motor sensory deficit Psychiatric exam: PRESENT: appropriate affect, normal mood. ABSENT: homicidal ideation, suicidal ideation Skin exam: PRESENT: dry, intact, warm. ABSENT: cyanosis, rash Results Laboratory Results: 01/06/19 11:05 01/07/19 04:13 01/06/19 01/06/19 11:05 11:05 Creatine Kinase 41 L CK-MB (CK-2) 0.77 Troponin I < 0.012 Impressions: Head CT 01/06/19 12:20 IMPRESSION: Right MCA territory infarcts frontal lobe and temporal lobe of uncertain chronicity. No hemorrhage or mass effect. EVIDENCE OF ACUTE STROKE: Indeterminate. Cannot exclude subacute right MCA territory stroke. Chest X-Ray 01/06/19 12:31 IMPRESSION: No acute abnormality of the lungs in AP projection. Hip X-Ray 01/06/19 12:32 IMPRESSION: NEGATIVE STUDY OF THE LEFT HIP AND PELVIS. NO RADIOGRAPHIC EVIDENCE OF ACUTE INJURY. Brain MRI with MRA 01/07/19 00:00 IMPRESSION: 1. Acute diffusion restricting infarctions of the mid right frontal lobe and right temporoparietal junction, in keeping with findings of prior CT. 2. There is long segment occlusion of the included distal right internal carotid artery, which is reconstituted at the terminus by retrograde flow; this is a possible source of embolic infarction to the right MCA territory. EVIDENCE OF ACUTE STROKE: NO. Head MRI 01/07/19 00:00 IMPRESSION: 1. Acute diffusion restricting infarctions of the mid right frontal lobe and right temporoparietal junction, in keeping with findings of prior CT. 2. There is long segment occlusion of the included distal right internal carotid artery, which is reconstituted at the terminus by retrograde flow; this is a possible source of embolic infarction to the right MCA territory. EVIDENCE OF ACUTE STROKE: NO. Carotid Doppler Study 01/07/19 11:39 IMPRESSION: Occluded right ICA at the carotid bifurcation Qualifiers - * PATIENT BEING DISCHARGED WITH ANY OF THE FOLLOWING DIAGNOSIS: Stroke Stroke Pt being discharged on Anti-thrombolytic therapy?: Yes Stroke Pt being discharged on Anti-coagulation therapy?: Yes Stroke Pt being discharged on Statins?: Yes VT Pt being discharged on Aspirin therapy?: Yes VT Pt being discharged on Statins?: Yes VT Pt discharged ACEI/ARBS?: Yes
== END 2019-01-08 14:20 | disposition home or self-care (01) | DRG 64 ==
LOC: ER 10:23 → EH 16:45 → 3N 20:45
PROVIDERS: ADMIT Hospitalist; ATTEND Hospitalist
DX: I63.411 Cerebral infarction due to embolism of right middle cerebral artery (principal); I63.233 Cerebral infarction due to unspecified occlusion or stenosis of bilateral carotid arteries; F10.29 Alcohol dependence with unspecified alcohol-induced disorder; I10 Essential (primary) hypertension; E11.9 Type 2 diabetes mellitus without complications; E78.2 Mixed hyperlipidemia; Z79.4 Long term (current) use of insulin; Z79.899 Other long term (current) drug therapy; Z91.81 History of falling; Z98.49 Cataract extraction status, unspecified eye; Z87.891 Personal history of nicotine dependence
CPT/HCPCS: 36415; 70450; 70544; 70551; 71045; 80048; 80053; 81001; 82140; 82550; 82553; 82962; 83036; 83735; 84484; 85025; 85610; 85730; 93005; 93010; 93306; 93880; 99285; J1644; J1815; J3490